=== PATIENT | female | born 1995 ===

== ENCOUNTER 2017-03-10 19:35 | Emergency (ER) | payer OTHER ==
[2017-03-10 19:35] VITALS: BMI 26.7
[2017-03-10 19:44] VITALS: RESP 17; TEMP 98.5
--- NOTE | 2017-03-10 20:36 | ED PDOC ---
HPI: CCC, URI, Sore Throat Time Seen by Provider: 03/10/17 19:46 Chief Complaint (Nursing): ENT Problem Chief Complaint (Provider): ENT Problem History Per: Patient History/Exam Limitations: no limitations Onset/Duration Of Symptoms: Days (x7) Additional Complaint(s): Arelis Wharton, 21 year old female presents to the ED on 03/10/17 with right ear pain occurring for 1 week prior to arrival. The patient states her ear pain was worse today which prompted her to visit the emergency room. She also states she felt a bump inside her right ear. The patient denies fever, chills, radiating pain, or experiencing any similar symptoms in the past. Past Medical History Reviewed: Historical Data, Nursing Documentation, Vital Signs Vital Signs: Last Vital Signs Temp 98.5 F 03/10/17 19:42 Pulse 73 03/10/17 19:42 Resp 17 03/10/17 19:42 BP Pulse Ox 99 03/10/17 20:45 - Medical History PMH: No Chronic Diseases Denies: HIV, Chronic Kidney Disease - Surgical History Surgical History: - Family History Family History: States: Unknown Family Hx - Home Medications Home Medications: Ambulatory Orders Medication Instructions Recorded Levothyroxine Sodium 0.088 mg PO DAILY 10/29/14 Ciprofloxacin/Dexamethasone 4 drop OT BID #1 bottle 03/10/17 [Ciprodex 0.3%-0.1% 7.5 Ml] - Allergies Allergies/Adverse Reactions: Allergies Allergy/AdvReac Type Severity Reaction Status Date / Time No Known Allergies Allergy Verified 03/10/17 19:40 Review of Systems Constitutional: Negative for: Fever, Chills ENT: Positive for: Ear Pain (right ear pain), Other (bump in right ear) Physical Exam - Reviewed Nursing Documentation Reviewed: Yes Vital Signs Reviewed: Yes - Physical Exam Appears: Positive for: Non-toxic, No Acute Distress Head Exam: Positive for: ATRAUMATIC, NORMOCEPHALIC ENT: Positive for: Other (closed comedone with surrounding erythema in right external auditory canal) Cardiovascular/Chest: Positive for: Regular Rate, Rhythm, Chest Non Tender Respiratory: Positive for: Normal Breath Sounds. Negative for: Accessory Muscle Use, Respiratory Distress Neurologic/Psych: Positive for: Alert, Oriented (x3) - ECG O2 Sat by Pulse Oximetry: 99 (RA) Pulse Ox Interpretation: Normal Medical Decision Making Medical Decision Making: Initial Impression: Right ear pain Initial Plan: * Patient given ear drops. Discussed with patient to follow up with PMD. Patient agreed to treatment plan. Scribe Attestation: Documented by Soniya Rao, acting as a scribe for Alma Vogel PA-C. Provider Scribe Attestation: All medical record entries made by the Scribe were at my direction and personally dictated by me. I have reviewed the chart and agree that the record accurately reflects my personal performance of the history, physical exam, medical decision making, and the department course for this patient. I have also personally directed, reviewed, and agree with the discharge instructions and disposition. Disposition - Clinical Impression Clinical Impression: Connor Corderolgia - Disposition Referrals: [facility] [place] [Outside] Disposition Time: 20:45 Condition: STABLE Prescriptions: Ciprofloxacin/Dexamethasone [Ciprodex 0.3%-0.1% 7.5 Ml] 4 drop OT BID #1 bottle Instructions: Acne (ED)
[2017-03-10 21:13] VITALS: PULSE 72; O2SAT 100
== END 2017-03-10 20:50 | disposition home or self-care (01) ==
LOC: H.ER 19:35
DX: H92.01 Otalgia, right ear (principal)

== ENCOUNTER 2017-09-24 16:18 | Emergency (ER) | payer MEDICAID, OTHER ==
[2017-09-24 16:19] VITALS: BMI 26.7
[2017-09-24] MEDS ORDERED: Lidocaine/Epi 1% 1:100000 20 ML IJ ONE (17:04)
--- NOTE | 2017-09-24 17:14 | ED PDOC ---
HPI: Female Pain Time Seen by Provider: 09/24/17 16:53 Chief Complaint (Nursing): Female Genitourinary Chief Complaint (Provider): Pelvic pain History Per: Patient Onset/Duration Of Symptoms: Days Current Symptoms Are (Timing): Still Present Additional Complaint(s): Pt. with pelvic cramps 1 month. Vaginal bleeding off and on for 4 months. For 5 days R thigh with painful pimple that is growing. No numbness, tingles. No weakness, headaches, back pain, fever, chest pain. No dysuria. Past Medical History Reviewed: Nursing Documentation, Vital Signs Vital Signs: Last Vital Signs Temp 98.3 F 09/24/17 16:37 Pulse 105 H 09/24/17 16:37 Resp 16 09/24/17 16:37 BP 130/84 09/24/17 16:37 Pulse Ox 99 09/24/17 16:37 - Medical History PMH: Denies: HIV, Chronic Kidney Disease Other PMH: hypothyroid - Surgical History Surgical History: Other surgeries: thyroid removed - Family History Family History: States: Unknown Family Hx - Social History Current smoker - smoking cessation education provided: No Alcohol: None Drugs: Denies - Home Medications Home Medications: Ambulatory Orders Medication Instructions Recorded Levothyroxine Sodium 0.088 mg PO DAILY 10/29/14 Ciprofloxacin/Dexamethasone 4 drop OT BID #1 bottle 03/10/17 [Ciprodex 0.3%-0.1% 7.5 Ml] Clindamycin [Cleocin] 300 mg PO QID 7 Days cap 09/24/17 Ibuprofen [Motrin] 600 mg PO TID 7 Days tab 09/24/17 - Allergies Allergies/Adverse Reactions: Allergies Allergy/AdvReac Type Severity Reaction Status Date / Time No Known Allergies Allergy Verified 09/24/17 16:37 Review of Systems ROS Statement: Except As Marked, All Systems Reviewed And Found Negative Genitourinary Female: Positive for: Vaginal Bleeding, Pelvic Pain Skin: Positive for: Rash Physical Exam - Reviewed Nursing Documentation Reviewed: Yes Vital Signs Reviewed: Yes - Physical Exam Appears: Positive for: Non-toxic, No Acute Distress Head Exam: Positive for: ATRAUMATIC, NORMAL INSPECTION, NORMOCEPHALIC Skin: Positive for: Normal Color, Warm, DRY Eye Exam: Positive for: EOMI, Normal appearance, PERRL ENT: Positive for: Normal ENT Inspection Neck: Positive for: Normal, Painless ROM Cardiovascular/Chest: Positive for: Regular Rate, Rhythm Respiratory: Positive for: CNT, Normal Breath Sounds Gastrointestinal/Abdominal: Positive for: Normal Exam, Bowel Sounds, Soft, Tenderness (across lower pelvic mild) Back: Positive for: Normal Inspection. Negative for: L CVA Tenderness, R CVA Tenderness Extremity: Positive for: Normal ROM, Tenderness (R inner thigh with diameter 5cm erythema; 1cm diameter in center of erythema with induration and slight purulent dc; tender erythema area ). Negative for: Pedal Edema Neurologic/Psych: Positive for: Alert, Oriented - Laboratory Results Result Diagrams: 09/24/17 17:30 09/24/17 17:30 Interpretation Of Abn Labs: no acute - ECG O2 Sat by Pulse Oximetry: 99 Pulse Ox Interpretation: Normal - CT Scan/US us Other Rad Studies (CT/US): Read By Radiologist Other Rad Interpretation: IUD - Progress ED Course And Treament: 1940: Stable. AAOx3. Pain controlled. Fu with pcp and obyn. Return in 3 days for packing removal and re-eval. Procedures - Incision and Drainage Site: R inner leg Blade Size: 11 I & D Procedure: sterile dressing applied, gauze wick placed Progress: 2% lido with epi applied with 23g needle, 1.5 ml. 11 blade used to cut abscess with .25cm opening. Purulent material evacuated as much as possible with pressure. 2cm of packing put in. Tolerated well. Disposition - Clinical Impression Clinical Impression: Abnormal vaginal bleeding, Abscess - Patient ED Disposition Is Patient to be Admitted: No Counseled Patient/Family Regarding: Studies Performed, Diagnosis, Need For Followup, Rx Given - Disposition Referrals: [facility] [Outside] - 09/[facility]/17 [facility] - 09/[facility]/17 Disposition: Routine/Home Disposition Time: 19:42 Condition: STABLE Additional Instructions: Return if not better in 1 week. Come back in 3 days or see your doctor for packing removal and re-evaluation. Prescriptions: Clindamycin [Cleocin] 300 mg PO QID 7 Days cap Ibuprofen [Motrin] 600 mg PO TID 7 Days tab Instructions: Abscess (ED), Dysfunctional Uterine Bleeding (ED) Print Language: ROMANIAN
[2017-09-24] MEDS ORDERED: Lidocaine 2% w Epi 1:100,000 Inj IJ ONE (17:18)
[2017-09-24] MEDS ORDERED: Lidocaine 1% Inj (20ml) ONE (17:19)
[2017-09-24] MEDS ORDERED: Povidone Iodine Topical 10% Sol ONE (17:22)
[2017-09-24 17:50] LABS: BASO # 0.1 K/uL (0.0-0.2); BASO % 0.5 % (0.0-2.0); EOS # 0.2 K/uL (0.0-0.7); EOS % 1.5 % (0.0-4.0); HEMATOCRIT 40.9 % (34.0-47.0); LYMPH # 2.6 K/uL (1.0-4.3); LYMPH % 24.2 % (20.0-40.0); MEAN CELL VOLUME 85.2 fl (81.0-99.0); MEAN CORPUSCULAR HEMOGLOBIN 28.2 pg (27.0-31.0); MEAN CORPUSCULAR HGB CONC 33.1 g/dL (33.0-37.0); MONO # 0.7 K/uL (0.0-0.8); MONO % 6.9 % (0.0-10.0); NEUT # 7.2 K/uL (1.8-7.0); NEUT % 66.9 % (50.0-75.0); RED CELL DISTRIBUTION WIDTH 13.6 % (11.5-14.5); WHITE BLOOD COUNT 10.7 K/uL (4.8-10.8)
[2017-09-24] MEDS: Sodium Chloride 0.9% 1,000 ML IV STA (18:09)
[2017-09-24] MEDS: Lidocaine 2% w Epi 1:100,000 Inj IJ ONE (18:16)
[2017-09-24 18:27] LABS: ALB/GLOB RATIO 1.4 (1.0-2.1); ALKALINE PHOSPHATASE 55 U/L (38-126); ALT/SGPT 60 U/L (9-52); AST/SGOT 35 U/L (14-36); BILIRUBIN,TOTAL 0.5 mg/dl (0.2-1.3); BLOOD UREA NITROGEN 11 mg/dl (7-17); CALCIUM 9.6 mg/dL (8.4-10.2); CARBON DIOXIDE 25 mmol/L (22-30); CHLORIDE 107 mmol/L (98-107); GFR AFRICAN-AMERICAN > 60; GLUCOSE,RANDOM 86 mg/dL (65-105); POTASSIUM 3.5 MMOL/L (3.6-5.0); SODIUM 143 mmol/l (132-148); TOTAL PROTEIN 7.3 G/DL (6.3-8.2)
--- NOTE | 2017-09-24 18:48 | US ---
HISTORY: vaginal bleeding COMPARISON: None available. TECHNIQUE: Transvaginal pelvic ultrasound FINDINGS: UTERUS: Measures 6.9 x 3.4 x 4.1 cm. Anteverted. ENDOMETRIUM: Measures 5 mm in diameter. IUD noted at the level of the the lower uterine segment. CERVIX: 9 mm nabothian cyst. RIGHT OVARY: Measures 2.6 x 1.8 x 2.4 cm. Blood flow is demonstrated. LEFT OVARY: Measures 2.9 x 1.5 x 2.9 cm. Blood flow is demonstrated. FREE FLUID: No significant free fluid noted. OTHER FINDINGS: None. IMPRESSION: Low-lying IUD noted within the lower uterine segment near the cervix; recommend follow-up with leasing coordinator.
[2017-09-24 20:03] VITALS: BP 110/60; PULSE 68; RESP 18; TEMP 97.8; O2SAT 100
== END 2017-09-24 20:06 | disposition home or self-care (01) ==
LOC: H.ER 16:18
DX: L02.415 Cutaneous abscess of right lower limb (principal); N93.9 Abnormal uterine and vaginal bleeding, unspecified; E03.9 Hypothyroidism, unspecified
CPT/HCPCS: 10060; 76830; 80053; 85025; 87070; 96374; 99284; J1885; J7040